=== PATIENT | female | born 1980 | race African-American/Black ===

== ENCOUNTER 2017-11-28 18:57 | Emergency (ER) | payer BC ==
[~2017-11-28] VITALS: Ht 162.6 cm; Wt 72.7 kg
[~2017-11-28 18:57] MED LIST: AMOXICILLIN 50500 MG PO; FLECTOR1.3% TP; FLEXERIL 1010 MG/TAB PO; INDOCIN 25MG CA25 MG PO; LIORESAL 1010 MG/TAB PO; NO HOME MEDICATIONS; NORCO 325 MG-51 TAB PO; NORCO 325 MG-7.1 TAB PO; PRENATAL VITAMI1 TA5 PO; RECLIPSEN 0.151 TAB PO; TUSS PO
[2017-11-28 19:18] VITALS: BP 117/65; PULSE 70; TEMP 98.7
[2017-11-28] MEDS ORDERED: AMBIEN 10MG10 MG PO (19:19)
[2017-11-28] MEDS ORDERED: CELEXA 20MG20 MG/TAB PO (19:20)
[2017-11-28] MEDS ORDERED: FLEXERIL 1010 MG/TAB PO (19:41)
== END 2017-11-28 20:36 | disposition home or self-care (01) ==
LOC: COL.ER 18:57
DX: M62.838 Other muscle spasm (principal); F41.9 Anxiety disorder, unspecified; Z98.890 Other specified postprocedural states
CPT/HCPCS: J2360

== ENCOUNTER 2022-09-19 19:32 | Emergency (ER) | payer BC ==
[~2022-09-19] VITALS: Ht 172.7 cm; Wt 81.8 kg
[~2022-09-19 19:32] MED LIST changes: +AMBIEN 10MG10 MG PO; +CELEXA 20MG20 MG/TAB PO
[2022-09-19 19:35] VITALS: TEMP 98.2
[2022-09-19 20:06] LABS: HEMATOCRIT 38.3 % (37.0-47.0); HEMOGLOBIN 12.7 g/dl (12.5-16.0); MEAN CELL VOLUME 92 fl (80.0-100.0); MEAN CORPUSCULAR HEMOGLOBIN 31 pg (27-31); MEAN CORPUSCULAR HGB CONC 33 g/dl (33.0-37.0); MEAN PLATELET VOLUME 8.8 fl (7.4-10.4); PLATELET COUNT 435 K/mm3 (130-400); RED BLOOD COUNT 4.16 M/mm3 (4.10-5.30); REDCELL DISTRIBUTION WIDTH-CV 12.7 % (11.5-14.5)
[2022-09-19 20:30] LABS: ALBUMIN 3.6 gm/dL (3.5-5.0); BILIRUBIN,TOTAL 0.4 mg/dL (0.2-1.2); C-REACTIVE PROTEIN 3.43 mg/dL (0.00-0.50); CALCIUM 9.7 mg/dL (8.4-10.2); CREATININE, serum 0.77 mg/dL (0.57-1.11); POTASSIUM 4.2 mmol/L (3.5-4.5); TOTAL PROTEIN 7.9 gm/dL (6.2-8.1)
[2022-09-19 20:35] LABS: BAND 6 % (0-10); LYMPHOCYTE 36 % (20.0-51.0); NEUTROPHILS 58 % (42.0-75.2); PLATELET ESTIMATE INCREASED (NORMAL)
[2022-09-19 21:18] LABS: COLLECTION METHOD CLEAN CATCH
[2022-09-19 21:27] LABS: MUCOUS Present (NOT PRESENT); URINE APPEARANCE Clear (CLEAR/HAZY); URINE BACTERIA None Seen /hpf (NONE SEEN); URINE COLOR Yellow (YELLOW)
[2022-09-19 21:28] LABS: URINE BLOOD TRACE-INTACT (NEGATIVE); URINE GLUCOSE Negative (NEGATIVE); URINE KETONE Negative (NEGATIVE); URINE NITRATE Negative (NEGATIVE); URINE PROTEIN(semi-quant) Negative (NEGATIVE); URINE UROBILINOGEN 0.2 E.U/dL (0.2-1.0)
[2022-09-19] MEDS ORDERED: CLEOCIN HCL300 MG PO (22:49)
[2022-09-19 23:20] VITALS: BP 133/85; PULSE 80
== END 2022-09-19 23:20 | disposition home or self-care (01) ==
LOC: COL.ER 19:32
PROVIDERS: Family Medicine; Nurse Practitioner
DX: J03.90 Acute tonsillitis, unspecified (principal); Z28.310 Unvaccinated for COVID-19
CPT/HCPCS: J1100; J1885; J2270; J2405; Q9967